=== PATIENT | female | born 1950 | race Hispanic/Latino ===

== ENCOUNTER 2017-07-27 09:09 | Emergency (ER) | payer MEDICARE ==
[2017-07-27] MEDS ORDERED: CEPHALEXIN 500 MG CAPSULE ONE (09:33)
== END 2017-07-27 10:10 | disposition home or self-care (01) ==
LOC: EDH 09:09
DX: L76.82 Other postprocedural complications of skin and subcutaneous tissue (principal); R60.0 Localized edema; I10 Essential (primary) hypertension; E78.5 Hyperlipidemia, unspecified